=== PATIENT | male | born 1960 | race Caucasian/White ===

== ENCOUNTER 2023-02-04 07:53 | Outpatient (OUT) | payer OTHER, SELFPAY ==
--- NOTE | 2023-02-04 07:56 | CT_ITS ---
The [address] [address] Patient Name: KWAKU CORADO MRN: [id number] date: 1960 Sex: M Assigned Patient Location: CT Current Patient Location: CT Accession/Order Number: [id number] Exam Date: 02/04/2023 08:10 Report Date: 02/04/2023 15:06 At the request of: DARRON TRAN Procedure: CT chest wo con CT chest wo con CLINICAL HISTORY: Histoplasmosis Pneumonia B39.2 COMPARISON: 01/28/2022. CT CHEST TECHNIQUE: Noncontrast axial CT images obtained from lung apices through lung bases. Coronal and sagittal reconstructions performed. Dose reduction techniques were achieved by using automated exposure control and/or adjustment of mA and/or kV according to patient size and/or use of iterative reconstruction technique. CT CHEST FINDINGS: Lower thyroid unremarkable. No axillary adenopathy. Thoracic spondylosis without acute bony process. Visualized upper abdomen with no acute process. Normal-sized adrenal glands. Normal heart and great vessel sizes. No pericardial effusion. No mediastinal adenopathy. Lungs are clear of active airspace opacities and effusions. Right upper lobe clustered lobulated nodularities are stable back to January 2022 and significantly decreased compared to April 2021 most consistent with benign granulomatous change and nodular scarring. A few additional areas of minimal scarlike changes. No other interval dominant lesion. CT/CT chest wo con IMPRESSION: Stable right upper lobe chronic benign change. No interval acute process or significant change. Electronically authenticated by: MAX KELLY Date: 02/04/2023 15:06
== END 2023-02-04 07:54 | disposition home or self-care (01) ==
LOC: CT 07:53
PROVIDERS: PCP Internal Medicine; Visit Provider Internal Medicine
DX: B39.2 Pulmonary histoplasmosis capsulati, unspecified (principal)
CPT/HCPCS: 71250

== ENCOUNTER 2025-05-05 06:48 | Outpatient (OUT) | payer BC, SELFPAY ==
[2025-05-05 07:51] LABS: Hematocrit 43.9 % (42.0-54.0); Hemoglobin 14.0 g/dL (14.0-18.0); Immature Granulocytes Abs Auto 0.01 10^3/uL (0.00-0.03); Immature Granulocytes Pct Auto 0.2 % (0.0-0.5); Lymphocytes Absolute Auto 1.1 10^3/uL (1.2-3.8); Mean Corpuscular HGB Conc 31.9 g/dL (29.9-35.2); Mean Corpuscular Hemoglobin 26.9 pg (25.9-34.0); Mean Corpuscular Volume 84.3 fL (80.0-94.0); Platelet Count 188 10^3/uL (150-450); Red Blood Count 5.21 10^6/uL (4.70-6.10); White Blood Count 4.6 10^3/uL (4.0-11.0)
[2025-05-05 07:54] LABS: Alanine Aminotransferase 25 U/L (16-63); Albumin Globulin Ratio 1.1; Albumin Level 3.8 g/dL (3.4-5.0); Alkaline Phosphatase 106 U/L (46-116); Anion Gap 11.7; Aspartate Amino Transferase 17 U/L (15-37); Blood Urea Nitrogen 24.0 mg/dL (7.0-18.0); Calcium 8.9 mg/dL (8.5-10.1); Carbon Dioxide 28.6 mmol/L (21.0-32.0); Chloride 104 mmol/L (98-107); Estimated GFR (African America >60 (>=60 mL/min/1.73m^2); Estimated GFR (Non-African Ame 53 (>=60 mL/min/1.73m^2); Globulin 3.6 g/dL; Glucose 104 mg/dL (74-106); Potassium 4.3 mmol/L (3.5-5.1); Sodium 140 mmol/L (136-145); Total Protein 7.4 g/dL (6.4-8.2)
== END 2025-05-05 06:49 | disposition home or self-care (01) ==
LOC: LAB 06:48
PROVIDERS: PCP Internal Medicine; Visit Provider Internal Medicine Rheumatology
DX: M06.4 Inflammatory polyarthropathy (principal); M15.0 Primary generalized (osteo)arthritis; Z79.899 Other long term (current) drug therapy
CPT/HCPCS: 36415; 80053; 85025; 85652